=== PATIENT | male | born 1990 | race African-American/Black ===

== ENCOUNTER 2020-06-14 14:35 | Emergency (ER) | payer OTHER, SELFPAY ==
[2020-06-14 15:35] VITALS: BP 143/70; PULSE 55; RESP 14; TEMP 36.8; O2SAT 97; BMI 28.1
--- NOTE | 2020-06-14 15:40 | ED.MALEGU ---
HPI - Male Genitourinary General Chief complaint: Urogenital-Male Stated complaint: Penile Discharge Time Seen by Provider: 06/14/20 15:37 History of Present Illness HPI Narrative: PATIENT COMPLAINS OF PENILE DISCHARGE WHICH STARTED THIS MORNING, HE IS SEXUALLY ACTIVE, NO TESTICULAR PAIN OR SWELLING NO FEVER NO CHILLS NO DYSURIA NO BACK PAIN OR ABDOMINAL Related Data Allergies Allergy/AdvReac Type Severity Reaction Status Date / Time No Known Allergies Allergy Unverified 03/08/20 19:46 [No Known Allergies*] Review of Systems Review of Systems: Positive for genital discharge, negatives are no fever no chills no dizziness no weakness no nausea no vomiting no abdominal pain or testicular pain or swelling no rash no lesions no sores PMFSH Past Medical History Attestation statement: The following information was validated with the patient. Medical History (Updated 06/15/20 @ 00:00 by Background Daemon) No known health problems Social History Social History Advance Directives: No Advance Directives Information Provided: Yes Physical Exam Vital Signs: Vital Signs: Last Vital Signs Temp 98.3 F 06/14/20 15:35 Pulse 55 06/14/20 15:35 Resp 14 06/14/20 15:35 BP 143/70 H 06/14/20 15:35 Pulse Ox 97 06/14/20 15:35 Body Mass Index 28.1 Patient is A&O x3 comfortable no distress Neck is supple Respiratory no distress Abdomen soft nontender nits Genital normal appearance, there is scant clear discharge, there is no testicular swelling or tenderness there is no redness no lesions no sores no ulcerations Course Course Course Narrative: Patient is treated with Rocephin and Zithromax and GC chlamydia cultures are pending, advised to inform partners and refrain from sexual activity Tool all partners are treated and better Discharge Plan Discharge Clinical Impression: Exposure to sexually transmitted disease (STD) Patient Disposition: Home, Self-Care Additional Instructions: You were treated for possible gonorrhea or chlamydia with both Rocephin and Zithromax Best plan is to inform all partners and no sexual activity till all partners are treated and better [facility] for further evaluation for any other STDs or HIV testing and if needed confirmatory test to make sure treatment worked Clinic phone number is [phone] Interventions: ED Discharge Assessment Last Done: 06/14/20 16:32 Discharge Date/Time: 06/14/20 16:32
[2020-06-14] MEDS: Azithromycin 500 MG TABLET 1000 MG PO (16:24)
[2020-06-14] MEDS: cefTRIAXone sodium 250 MG, Lidocaine HCl 1 % MPF 0.9 ML IM (16:25)
== END 2020-06-14 16:32 | disposition home or self-care (01) ==
PROVIDERS: Emergency Provider Emergency Medicine; PCP Family Medicine
DX: Z20.2 Contact with and (suspected) exposure to infections with a predominantly sexual mode of transmission (principal)
CPT/HCPCS: 87491; 87591; 96372; 99283; 99284; J0696